=== PATIENT | female | born 1960 | race Caucasian/White ===

== ENCOUNTER 2016-09-30 10:41 | Outpatient (CLI) | payer OTHER, BC | END 2016-09-30 10:42 | disposition home or self-care (01) | DX: G47.33 Obstructive sleep apnea (adult) (pediatric) (principal) ==

== ENCOUNTER 2017-10-09 07:32 | Outpatient (CLI) | payer OTHER, BC ==
--- NOTE | 2017-10-09 11:42 | XRAY Report ---
THREE-VIEW BILATERAL FEET: 10/09/2017 CLINICAL INDICATION: Right greater than left pain. FINDINGS: AP, lateral and oblique views of the bilateral feet demonstrate mild bilateral hallux valgus, with mild osteoarthritis. There is no evidence of acute fracture or dislocation. No radiopaque foreign body is seen in the soft tissues. IMPRESSION: MILD OSTEOARTHRITIS, WITH MILD BILATERAL HALLUX VALGUS. TD: 10/09/2017 11:42 [facility]
== END 2017-10-09 07:33 | disposition home or self-care (01) ==
LOC: DI 07:32
PROVIDERS: ATTEND Registered Nurse
DX: M20.12 Hallux valgus (acquired), left foot (principal); M20.11 Hallux valgus (acquired), right foot; M19.072 Primary osteoarthritis, left ankle and foot; M19.071 Primary osteoarthritis, right ankle and foot; M21.619 Bunion of unspecified foot; M79.676 Pain in unspecified toe(s)

== ENCOUNTER 2018-10-20 14:45 | Outpatient (CLI) | payer OTHER, BC ==
--- NOTE | 2018-10-20 16:30 | Mammography Report ---
Reason: ENCOUNTER FOR SCREENING MAMMOGRAM FOR MALIGNANT NE Procedure Date: 10/20/2018 Accession Number: [id number] / [id number] Procedure: DIANN - Screening Mammo w/Woody CPT Code: FULL RESULT: EXAM: Screening Mammo w/Woody DATE: 10/20/2018 3:20 PM CLINICAL HISTORY: Routine screening. No reported personal or family history of breast cancer. TECHNIQUE: (B) - Bilateral CC and MLO views were obtained. COMPARISON: 06/07/2014 through 12/12/2010 PARENCHYMAL PATTERN: (D) - The breasts demonstrate heterogeneously dense fibroglandular parenchyma bilaterally. FINDINGS: Bilateral breasts: There are no suspicious masses, calcifications, or areas of distortion. IMPRESSION: Negative examination. BI-RADS category 1. RECOMMENDATION: (ANNUAL) - Recommend routine annual screening mammography. BI-RADS CATEGORY: (1) - Negative. STANDARD QUALIFYING STATEMENTS: 1. This examination was not reviewed with the aid of Computer-Aided Detection (CAD). 2. A negative or benign imaging report should not preclude biopsy if clinically suspicious findings are present. 3. Dense breasts may obscure an underlying neoplasm. 4. This examination was reviewed with the aid of 3D breast imaging (tomosynthesis).
== END 2018-10-20 14:46 | disposition home or self-care (01) ==
LOC: DI 14:45
PROVIDERS: ATTEND Registered Nurse
DX: Z12.31 Encounter for screening mammogram for malignant neoplasm of breast (principal)
CPT/HCPCS: 77063; 77067

== ENCOUNTER 2018-10-21 08:48 | Outpatient (CLI) | payer OTHER, BC | END 2018-10-21 08:49 | disposition home or self-care (01) | LOC: SC 08:48 | PROVIDERS: ATTEND Nurse Practitioner Family | DX: G47.33 Obstructive sleep apnea (adult) (pediatric) (principal) | CPT/HCPCS: 99212; 99214 ==

== ENCOUNTER 2019-06-07 10:11 | Outpatient (CLI) | payer OTHER, BC ==
[2019-06-07 11:05] VITALS: BP 106/70
--- NOTE | 2019-06-07 11:05 | SLEEP CARE CONSULTATION ---
Information from patient questionnaire entered by Kisha Cook. I have reviewed and concur with the information entered by Kisha Cook. This document represents the service I personally performed and the decisions made by me, Mira Miller, RN, MSN, [employer]. History of Present Illness Previous diagnosis: Mild, Obstructive Sleep Apnea-Hypopnea Syndrome AHI: 10.1 Reason for follow up: other (7 months, transfer of care) Equipment type: CPAP Equipment obtained from: [facility] (having difficulty getting supplies and unable to update CPAP ordered in October) Mask brand: Respironics Last cushion change: no new supplies for more than 6 months Prior sleep studies: Yes CPAP Compliance Data - Data Reviewed with Patient Average duration of nightly device use: 7h 7m Compliance rate %: 98 Current pressure setting (cmH2O): 5 Humidity settin Heated hose settin Average residual AHI: 2.2 Average large leak: 0s Subjective Patient concerns: reports: mask discomfort (from forehead piece. she did not get the cloth barriers shown), dry mouth, nose, throat (humidity increased with benefit). denies: aerophagia, air blowing in eyes, mask leak noise, condensation in mask/hose, nasal congestion, epistaxis Observed to snore while using device: No Current pressure setting perceived as: comfortable On therapy, patient: reports: sleeping better, awakening more refreshed, being more awake and alert during the day, more rested overall. denies: drowsiness while driving Initial [place] Sleepiness Scale score: 7 Current [place] Sleepiness Scale score: 7 Allergies and Home Medications Known drug allergies: No Home medication list reviewed: Yes Allergy and home medication list: Medication Name (generic/name brand) Strength & Dosage Etodolac 500mg tab one up to twice daily as needed Review of Systems Review of systems same as previous: Yes Physical Exam Blood Pressure: 106/70 Cuff size: long Heart Rate: 78 O2 Saturation: 98 Height: 5 ft 11 in Weight: 172 lb Body Mass Index: 24.0 BMI Classification: Healthy weight Impression and Plan 1. Obstructive Sleep Apnea-Hypopnea Syndrome, mild, with good treatment compliance and good apnea control. On CPAP therapy, the patient has better sleep quality and is more rested overall. As noted in history, the patient is having difficulty getting CPAP supplies or update of her CPAP thus is here today to transfer of care. She is also changing her insurance provider so waited to start process for beginning of the year. Thus since her CPAP is over 5 years old and of reasonable use and has been increasing noise of function as well has difficulty starting automatically, I will again write a prescription to update. I reviewed the differences in CPAPs and she would like to update to the [employer] ation. In addition, I will order a mask refitting for comfort. I showed her some samples and she would like to try the [employer] nasal mask. She is to contact the DME if mask fit no better for replacement if less than 30 days. Patient's apnea severity and rationale for treatment to reduce apnea, improve sleep quality and reduce cardiovascular and cerebrovascular events was reviewed. * Update CPAP and continue pressure at 5 cmH2O * mask refitting * Transfer of care * Notify me if snoring with mask or feeling that the pressure is too much or too little * Attempt to lose weight * Call this office if any problems using CPAP * Return for follow up in 1 month after receives device. Time Spent with Patient (minutes): 28 I spent 100% of this visit face to face with the patient with greater than 50% of this was spent time counseling the patient and coordination of care.
== END 2019-06-07 10:12 | disposition home or self-care (01) ==
LOC: SC 10:11
PROVIDERS: ATTEND Nurse Practitioner Family
DX: G47.33 Obstructive sleep apnea (adult) (pediatric) (principal)
CPT/HCPCS: 99212; 99214

== ENCOUNTER 2019-09-06 16:14 | Outpatient (CLI) | payer BC ==
--- NOTE | 2019-09-06 16:30 | SLEEP CARE CONSULTATION ---
Information from patient questionnaire entered by Elsie Reeder. I have reviewed and concur with the information entered by Elsie Reeder. This document represents the service I personally performed and the decisions made by me, Aileen Eisenberg MD, [facility]. History of Present Illness Previous diagnosis: Mild, Obstructive Sleep Apnea-Hypopnea Syndrome AHI: 10.1 (in 2012) Reason for follow up: first compliance after device update Equipment type: CPAP Equipment obtained from: [facility] additional information: To minimize the risk of COVID-19 exposure, we have the option to conduct your visit with me over the phone. I will be able to discuss your health and offer medical advice. If you agree, we will bill your insurance. Do you agree to this telephone service: YES. HPI: Ms. Beach was called today to follow up on nasal CPAP therapy. She was diagnosed to have mild obstructive sleep apnea-hypopnea syndrome and recently acquired a new machine. The patient wears with a nasal mask. She reports using the device nightly and all through the night. The compliance data show usage in 30 out of the past 30 nights, averaging 7 hours a night. The > 4 hour compliance rate for the past 30 days is 100%. She complained of no particular problem with the device such as soreness on the face, dry nose, epistaxis, nasal congestion or headache. She thinks that the pressure of 5 cmH2O many a little to strong because it causes some discomfort in her ears. On the CPAP therapy she notices improvement in her sleep quality, and that she wakes up feeling fresher in the morning and more awake/alert during the day. The average residual AHI is 2.3; and air leak, 0 L/min. CPAP Compliance Data - Data Reviewed with Patient Average duration of nightly device use: 6.95 Compliance rate %: 100 Current pressure setting (cmH2O): 5 Humidity settin Heated hose settin Average residual AHI: 2.3 Average large leak: 0 Subjective Initial [place] Sleepiness Scale score: 7 Allergies and Home Medications Drug allergies reviewed: Yes Home medication list reviewed: Yes Review of Systems Review of systems same as previous: Yes Physical Exam Height: 5 ft 11 in Impression and Plan IMPRESSION: 1. Obstructive Sleep Apnea-Hypopnea Syndrome, mild (AHI was 10.1), with the patient doing well on nasal CPAP therapy. She has excellent compliance and significant clinical improvement. The current pressure appears effective but slightly uncomfortable. Her mask fits well. Overall, she is very satisfied with treatment and plans to continue with it long-term. I will lower the pressure to 4 cmH2O. PLAN: 1. Lower CPAP to 4 cmH2O. 2. Try to lose weight 3. Try other masks and nasal pillows. 4. Return in one year for follow up or earlier if there is any problem with the treatment. I spent 100% of the 12 minute phone call with the patient with greater than 50% of this spent counseling the patient and coordination of care.
== END 2019-09-06 16:15 | disposition home or self-care (01) ==
LOC: SC 16:14
PROVIDERS: ATTEND Internal Medicine Pulmonary Disease
DX: G47.33 Obstructive sleep apnea (adult) (pediatric) (principal)

== ENCOUNTER 2019-11-09 11:25 | Outpatient (CLI) | payer BC ==
--- NOTE | 2019-11-09 12:43 | XRAY Report ---
Reason: PAIN IN RT WRIST Procedure Date: 11/09/2019 Accession Number: [id number] / [id number] Procedure: XR - Wrist 3 View RT CPT Code: Final Report FULL RESULT: PROCEDURE: Wrist 3 View RT INDICATIONS: PAIN IN RT WRIST TECHNIQUE: 3 views of the wrist were acquired. COMPARISON: None. FINDINGS: Bones: No fractures or dislocations. No suspicious bony lesions. Soft tissues: No suspicious soft tissue calcifications. No radiographic abnormalities underlying the skin BB marker identifying location of patient's pain. IMPRESSION: Right wrist without radiographic abnormalities. If there is persistent clinical concern for radiographically occult injury or soft tissue derangement, further evaluation with MRI can be considered. Reviewed by: Altaf Sarmiento MD on 11/09/2019 12:42 PM PDT Approved by: Altaf Sarmiento MD on 11/09/2019 12:42 PM PDT Station ID: [id number]
== END 2019-11-09 11:26 | disposition home or self-care (01) ==
LOC: DI 11:25
PROVIDERS: ATTEND Nurse Practitioner Family
DX: M25.531 Pain in right wrist (principal)

== ENCOUNTER 2019-12-10 10:00 | Emergency (ER) | payer BC ==
[2019-12-10 10:15] VITALS: BP 126/70
--- NOTE | 2019-12-10 11:02 | ED Physician Documentation ---
PD HPI BACK PAIN - Stated complaint Stated Complaint: BACK PX - Chief complaint Chief Complaint: Back Pain - History obtained from History obtained from: Patient - History of Present Illness Timing - onset: How many weeks ago (2) Timing - duration: Weeks (2) Timing - details: Gradual onset, Still present (improved from yesterday), Waxing and waning Location: Lower, Left Quality: Pain, Aching Associated symptoms: Numbness (just today). No: Fever, Weakness Worsened by: Movement Contributing factors: Twisting. No: Trauma, Cancer Similar symptoms before: No diagnosis Recently seen: Clinic (seen at [facility] walk in yesterday and Rx Robaxin. Told to recheck if develops numbness or weakness. Had some numbness down left lower leg/foot today, so here for eval. She says the pain has improved since yesterday.) Review of Systems Constitutional: denies: Fever, Chills : denies: Unable to Void, Incontinent Skin: denies: Rash, Lesions Musculoskeletal: reports: Back pain (left low back) Neurologic: reports: Numbness. denies: Focal weakness, Near syncope PD PAST MEDICAL HISTORY - Past Medical History Cardiovascular: None Respiratory: None Neuro: None - Past Surgical History Past Surgical History: Yes General: Colonoscopy HEENT: Other - Present Medications Home Medications: Ambulatory Orders Medication Instructions Recorded Confirmed Hydrocodone/Acetaminophen [[place] 1 each PO TID PRN #12 tablet 12/10/19 5-325 Tablet] dexAMETHasone [Decadron] 4 mg PO DAILY #7 tablet 12/10/19 - Allergies Allergies/Adverse Reactions: Allergies Allergy/AdvReac Type Severity Reaction Status Date / Time No Known Drug Allergies Allergy Verified 12/10/19 10:08 - Social History Does the pt smoke?: No Smoking Status: Never smoker Does the pt drink ETOH?: Yes Does the pt have substance abuse?: No - Immunizations Immunizations are current?: Yes - POLST Patient has POLST: No PD ED PE NORMAL - Vitals Vital signs reviewed: Yes - General General: Alert and oriented X 3, No acute distress, Well developed/nourished - Cardiac Cardiac: RRR, No murmur - Respiratory Respiratory: Clear bilaterally - Abdomen Abdomen: Soft, Non tender - Back Back: No CVA TTP, No spinal TTP (has some tenderness lower lumbar paraspinous area and muscles. No rash nor sores. ) - Derm Derm: Normal color, Warm and dry, No rash - Extremities Extremities: No tenderness to palpate, Normal ROM s pain, No edema, No calf tenderness / cord - Neuro Neuro: Alert and oriented X 3, No motor deficit, Normal speech, Other (decreased sensation some to touch in mid toes and dorsal foot, lateral lower leg. But able to distinguish sharp/dull. No motor weakness noted. ) Results - Vitals Vitals: Vital Signs - 24 hr 12/10/19 10:08 Temperature 36.6 C Heart Rate 65 Respiratory 16 Rate Blood Pressure 126/70 O2 Saturation 99 Oxygen O2 Source Room air PD MEDICAL DECISION MAKING - ED course Complexity details: considered differential (some nerve root numbness to left leg. Does not have red flag to suggest need for urgen imaging. ), d/w patient Departure - Departure Disposition: 01 Home, Self Care Clinical Impression: Low back pain Qualifiers: Chronicity: acute Back pain laterality: left Sciatica presence: with sciatica Sciatica laterality: sciatica of left side Qualified Code(s): M54.42 - Lumbago with sciatica, left side Condition: Stable Record reviewed to determine appropriate education?: Yes Instructions: ED Spasm Back No Trauma, ED Sciatica Follow-Up: Rosy Garduno ARNP [Primary Care Provider] - Prescriptions: dexAMETHasone [Decadron] 4 mg PO DAILY #7 tablet Hydrocodone/Acetaminophen [[place] 5-325 Tablet] 1 each PO TID PRN #12 tablet PRN Reason: Pain Comments: The numbness in her foot suggest some nerve irritation or inflammation. At this point it does not warrant urgent imaging such as CT or MRI. If your symptoms worsen or associated with weakness in the leg, then that may change the time urgency. Otherwise back pain even with some sciatic nerve irritation is typically approached with the anti-inflammatories and muscle relaxants and pain medicine along with physical modalities such as stretching heat chiropractic and massage. Follow-up with your primary care if not improved well over the next 3 to 5 days. Add Decadron steroid anti-inflammatory daily for the next 5 to 7 days. Continue your methocarbamol muscle relaxant for 3 to 5 days and then to as needed. Add Tylenol or ibuprofen for pain or hydrocodone if needed for worse pain. Discharge Date/Time: 12/10/19 11:45
[2019-12-10] MEDS ORDERED: DEXAMETHASONE 10 MG/ML VIAL PO STA (11:22)
[2019-12-10] MEDS ORDERED: ACETAMINOPHEN 325 MG TABLET PO STA (11:22)
[2019-12-10] MEDS ORDERED: CHERRY SYRUP 10 ML UDC PO ONE (11:22)
== END 2019-12-10 11:45 | disposition home or self-care (01) ==
LOC: ED 10:00
DX: M54.42 Lumbago with sciatica, left side (principal)
CPT/HCPCS: 99282; 99284; A9270

== ENCOUNTER 2020-05-15 15:25 | Outpatient (CLI) | payer OTHER, BC ==
--- NOTE | 2020-05-15 17:12 | Ultrasound Report ---
PROCEDURE: Head or Neck Soft Tissue INDICATIONS: THYROID DISORDER SCREENING TECHNIQUE: Real-time scanning was performed of the thyroid gland, with image documentation. COMPARISON: None FINDINGS: Right: Thyroid lobe measures 5.7 x 1.4 x 1.3 cm, and is homogeneous in echotexture. Left: Thyroid lobe measures 5.4 x 1.2 x 1.5 cm, and is homogenous in echotexture. Isthmus: 0.2 mm thick. Nodule number: One Location: Right lobe Size: 0.6 x 0.3 x 0.4 cm. Composition: Solid Echogenicity: Hypoechoic Shape: wider than tall. Margins: Irregular Echogenic foci: None Total points: 4 ACR TI-RADS category: 4 Nodule number: Two Location: Right lobe Size: 0.6 x 0.3 x 0.4 cm. Composition: Solid Echogenicity: Hypoechoic Shape: Wider than tall Margins: Irregular Echogenic foci: None Total points: 4 ACR TI-RADS category: 4 Nodule number: Three Location: Right lobe Size: 1.1 x 0.8 x 0.8 cm. Composition: Solid Echogenicity: Hypoechoic Shape: wider than tall. Margins: Smooth Echogenic foci: None Total points: 4 ACR TI-RADS category: 4 IMPRESSION: All images above are considered category 4 and recommend interval follow-up of lesion 3 at 1, 2, 3 and 5 years. Lesions 1 and 2 are considered below the threshold of annual follow-up. ACR TI-RADS definitions and recommendations: TI-RADS 1 (benign): 0 points. FNA not needed. TI-RADS 2 (not suspicious): 2 points. FNA not needed. TI-RADS 3 (mildly suspicious): 3 points. ? FNA if 2.5 cm or larger, follow up if 1.5 cm or larger (at 1, 3, and 5 years). TI-RADS 4 (moderately suspicious): 4-6 points. ? FNA if 1.5 cm or larger, follow up if 1 cm or larger (at 1, 2, 3, and 5 years). TI-RADS 5 (highly suspicious): 7 points or more. ? FNA if 1 cm or larger, follow up if 0.5 cm or larger (every year for 5 years). Reviewed by: Jennie Deng MD on 05/15/2020 5:10 PM PST Approved by: Jennie Deng MD on 05/15/2020 5:10 PM PST Station ID: [id number]
== END 2020-05-15 15:26 | disposition home or self-care (01) ==
LOC: DI 15:25
PROVIDERS: ATTEND Registered Nurse
DX: Z13.29 Encounter for screening for other suspected endocrine disorder (principal); E04.2 Nontoxic multinodular goiter

== ENCOUNTER 2020-08-31 11:27 | Outpatient (CLI) | payer OTHER, BC ==
--- NOTE | 2020-08-31 12:03 | SLEEP CARE CONSULTATION ---
Information from patient questionnaire entered by Elsie Reeder. I have reviewed and concur with the information entered by Elsie Reeder. This document represents the service I personally performed and the decisions made by , Maricel Winston ARNP. History of Present Illness Service Date and Time: 08/31/2020 1127 Previous diagnosis: Mild, Obstructive Sleep Apnea-Hypopnea Syndrome AHI: 10.1 (in 2011) Reason for follow up: annual (last seen 08/2019) Equipment type: CPAP Equipment obtained from: [employer] (getting supplies as needed) Mask style: Nasal pillows Backup mask available: Yes (old mask) Last cushion change: not sure Prior sleep studies: Yes Year and Where: 2011 - [facility] Type of Sleep Study: Polysomnography HPI additional information: OLEG ROWAN was diagnosed to have mild, AHI 10.1, obstructive sleep apnea- hypopnea syndrome and returned today for CPAP therapy annual follow-up. CPAP Compliance Data - Data Reviewed with Patient Average duration of nightly device use: 6 hr 53 min Compliance rate %: 97.8 (180 days) Current pressure setting (cmH2O): 4 Humidity settin Heated hose settin Average residual AHI: 3.4 Average large leak: 0 Subjective Patient concerns: reports: mask discomfort. denies: aerophagia, air blowing in eyes, mask leak noise, condensation in mask/hose, nasal congestion, dry mouth, nose, throat, epistaxis, other Observed to snore while using device: No Current pressure setting perceived as: comfortable On therapy, patient: reports: sleeping better, awakening more refreshed, being more awake and alert during the day, more rested overall. denies: drowsiness while driving Initial [place] Sleepiness Scale score: 7 (in 2011) Current [place] Sleepiness Scale score: 5 Allergies and Home Medications Drug allergies reviewed: Yes (NKDA) Home medication list reviewed: Yes (no new medications) Review of Systems Review of systems same as previous: No (Benign Paraxysmal Positional Vertigo 01/2020; Back spasms 12/2019 ) Physical Exam Heart Rate: 67 O2 Saturation: 98 Height: 6 ft Weight: 157 lb Body Mass Index: 21.2 BMI Classification: Healthy weight Impression and Plan 1. Obstructive Sleep Apnea-Hypopnea Syndrome, mild, with good treatment compliance and good apnea control. On CPAP therapy, the patient has better sleep quality and is more rested overall. She has not issues or concerns today. Patient's apnea severity and rationale for treatment to reduce apnea, improve sleep quality and reduce cardiovascular and cerebrovascular events was reviewed. * Continue auto CPAP pressure at 4 cmH2O * Notify me if snoring with mask or feeling that the pressure is too much or too little * Attempt to lose weight * Call this office if any problems using CPAP * Return for follow up in 1 year, or sooner if concerns arise Counseling Topics: Spare mask, Weight control Visit Type: In Office Time Spent with Patient (minutes): 12 Provider Statement: I spent 100% of the Face to Face Visit with the patient with greater than 50% spent counseling the patient and coordination of care.
== END 2020-08-31 11:28 | disposition home or self-care (01) ==
LOC: SC 11:27
PROVIDERS: ATTEND Nurse Practitioner Family
DX: G47.33 Obstructive sleep apnea (adult) (pediatric) (principal)
CPT/HCPCS: 99212

== ENCOUNTER 2021-05-24 15:19 | Outpatient (CLI) | payer OTHER, BC ==
--- NOTE | 2021-05-24 20:02 | Ultrasound Report ---
PROCEDURE: Head or Neck Soft Tissue INDICATIONS: THYROID NODULE TECHNIQUE: Real-time scanning was performed of the thyroid gland, with image documentation. COMPARISON: None FINDINGS: Right: Thyroid lobe measures 5.1 x 1.3 x 1.9 cm, and is homogeneous in echotexture. Left: Thyroid lobe measures 2 x 1.5 x 1.8 cm, and is homogenous in echotexture. Isthmus: 0.2 mm thick. Nodule number: One Location: Right lobe Size: 0.6 x 0.3 x 0.4 cm. Composition: Solid Echogenicity: Hypoechoic Shape: wider than tall. Margins: Irregular Echogenic foci: None Total points: 4 ACR TI-RADS category: 4 Nodule number: Two Location: Right lobe Size: 0.6 x 0.3 x 0.4 cm. Composition: Solid Echogenicity: Hypoechoic Shape: Wider than tall Margins: Irregular Echogenic foci: None Total points: 4 ACR TI-RADS category: 4 Nodule number: Three Location: Right lobe Size: 1.3 x 1.0 x 1.0 cm. Composition: Predominantly solid Echogenicity: Hypoechoic Shape: wider than tall. Margins: Smooth Echogenic foci: None Total points: 4 ACR TI-RADS category: 4 IMPRESSION: Stable thyroid nodules as above. Continued follow-up per best practice guidelines advise d ACR TI-RADS definitions and recommendations: TI-RADS 1 (benign): 0 points. FNA not needed. TI-RADS 2 (not suspicious): 2 points. FNA not needed. TI-RADS 3 (mildly suspicious): 3 points. "FNA if 2.5 cm or larger, follow up if 1.5 cm or larger (at 1, 3, and 5 years). TI-RADS 4 (moderately suspicious): 4-6 points. "FNA if 1.5 cm or larger, follow up if 1 cm or larger (at 1, 2, 3, and 5 years). TI-RADS 5 (highly suspicious): 7 points or more. "FNA if 1 cm or larger, follow up if 0.5 cm or larger (every year for 5 years). Reviewed by: Nils Bowden MD on 05/24/2021 7:00 PM [place] Approved by: Nils Bowden MD on 05/24/2021 7:00 PM AKST Station ID: [id number]
== END 2021-05-24 15:20 | disposition home or self-care (01) ==
LOC: DI 15:19
PROVIDERS: ATTEND Registered Nurse
DX: E04.2 Nontoxic multinodular goiter (principal)

== ENCOUNTER 2021-09-30 13:34 | Outpatient (CLI) | payer OTHER, BC ==
--- NOTE | 2021-09-30 14:18 | SLEEP CARE CONSULTATION ---
Information from patient questionnaire entered by Shen Enrique. I have reviewed and concur with the information entered by Shen Enrique. This document represents the service I personally performed and the decisions made by me, Aileen Eisenberg MD, [facility]. History of Present Illness Service Date and Time: 09/30/2021 1320 Previous diagnosis: Mild, Obstructive Sleep Apnea-Hypopnea Syndrome AHI: 10.1 (in 2011) Reason for follow up: annual (LAST SEEN 08/2020, [facility]) Equipment type: CPAP Equipment obtained from: [employer] (getting supplies as needed) Mask style: Nasal pillows Prior sleep studies: Yes Year and Where: 2011 - [facility] Type of Sleep Study: Polysomnography HPI additional information: Ms. Beach was called today to follow up on nasal CPAP therapy. She was diagnosed to have mild obstructive sleep apnea-hypopnea syndrome. The patient wears nasal pillows. She thinks [employer] is her durable medical supplier. She reports using the device nightly and all through the night. The compliance data show usage in 362 out of the past 365 nights, averaging 7.1 hours a night. The > 4 hour compliance rate for the past 365 days is 98.6%. She complained of soreness in her nostrils but no particular problem with the device such as soreness on the face, dry nose, epistaxis, nasal congestion or headache. She thinks that the pressure of 4 cmH2O is comfortable. On the CPAP therapy she notices improvement in her sleep quality, and that she wakes up feeling fresher in the morning and more awake/alert during the day. The average residual AHI is 5.4 (mainly due to the very high residual AHI in Mar-Apr last year when she had her knee surgery); and air leak, 0 L/min. Sleep Study - Results Type of Sleep Study: Polysomnography Prior sleep studies: Yes Year and Where: 2011 - [facility] Subjective Initial [place] Sleepiness Scale score: 7 (in 2012) Allergies and Home Medications Drug allergies reviewed: Yes Home medication list reviewed: Yes Allergy and home medication list: Allergies No Known Drug Allergies Allergy (Verified 12/10/19 10:08) Physical Exam Vital signs obtained and entered by: ELEUTERIO FRANCES Height: 6 ft Impression and Plan IMPRESSION: 1. Obstructive Sleep Apnea-Hypopnea Syndrome, mild (AHI was 10.1), with the patient doing well on nasal CPAP therapy. She has excellent compliance and significant clinical improvement. The current pressure appears effective and comfortable. Her mask fits well. Overall, she is very satisfied with treatment and plans to continue with it long-term. I will leave the pressure at 4 cmH2O. PLAN: 1. Leave CPAP at 4 cmH2O. 2. Try to lose weight 3. Try ResMed N30i mask and Respironics DreamWear nasal cushion mask. 4. Return in one year for follow up or earlier if there is any problem with the treatment. Follow up with Sleep Care in: 1 year Visit Type: Telehealth Video (PHONE# [phone]) Video Type: Doximity Patient Location: Home Location of Provider: Home Patient agrees and consents to this telehealth visit type: Yes Patient agrees to have their insurance billed: Yes Provider Statement: I spent 100% of the Telehealth Video Call with the patient with greater than 50% spent counseling the patient and coordination of care.
== END 2021-09-30 13:35 | disposition home or self-care (01) ==
LOC: SC 13:34
PROVIDERS: ATTEND Internal Medicine Pulmonary Disease
DX: G47.33 Obstructive sleep apnea (adult) (pediatric) (principal)

== ENCOUNTER 2021-12-24 13:58 | Outpatient (CLI) | payer OTHER, BC ==
--- NOTE | 2021-12-25 16:15 | Mammography Report ---
BILATERAL DIGITAL SCREENING MAMMOGRAM 3D/2D: 12/24/2021 CLINICAL: Routine screening. Comparison is made to exams dated: 10/20/2018 mammogram, 10/20/2018 mammogram, 06/07/2014 mammogram, 1 mammogram, and 02/22/2013 mammogram - [facility]. The tissue of both monica sts is heterogeneously dense. This may lower the sensitivity of mammography. No significant masses, calcifications, or other findings are seen in either breast. There has been no significant interval change. IMPRESSION: NEGATIVE There is no mammographic evidence of malignancy. A 1 year screening mammogram is recommended. Based on the Tyrer Cuzick model (a risk assessment model) the patients lifetime risk is 13.0% and he r 10 year risk is 5.5%. According to the ACR, ACS, and NCCN guidelines, an annual breast MRI exam declan ng with mammogram is recommended if the patients lifetime risk is 20% or greater. This exam was interpreted at Station ID: [id number]. NOTE: For mammograms, a report in lay terms will be sent to the patient. Approximately 15% of breast malignancies will not be visualized mammographically. In the management of a palpable breast mass, a negative mammogram must not discourage biopsy of a clinically suspicious lesion. Electronically Signed By: Leena howard/jozef:12/24/2021 17:19:13 ACR BI-RADS Category 1: Negative 3341F PARENCHYMAL PATTERN: (D) - The breast(s) demonstrate(s) heterogeneously dense fibroglandular avery morillo. BI-RADS CATEGORY: (1) - 1 RECOMMENDATION: (ANNUAL) - Recommend routine annual screening mammography. [id number] 1 year screening LATERALITY: (B)
== END 2021-12-24 13:59 | disposition home or self-care (01) ==
LOC: DI 13:58
DX: Z12.31 Encounter for screening mammogram for malignant neoplasm of breast (principal)

== ENCOUNTER 2022-08-23 07:00 | Outpatient (CLI) | payer OTHER, BC ==
--- NOTE | 2022-08-23 19:31 | XRAY Report ---
PROCEDURE: Tib/Fib LT INDICATIONS: LEFT LOWER LEG PAIN TECHNIQUE: 2 views of the tibia and fibula were acquired. COMPARISON: None FINDINGS: Bones: No fractures or dislocations. No suspicious bony lesions. No periosteal reaction or cortica l thinning. Soft tissues: No suspicious soft tissue calcifications or masses. IMPRESSION: No stress fracture identified. Reviewed by: Bong Ellis MD on 08/23/2022 6:29 PM [facility] Approved by: Bong Ellis MD on 08/23/2022 6:29 PM [facility]IRA Station ID: [id number]
== END 2022-08-23 07:01 | disposition home or self-care (01) ==
LOC: DI.S 07:00
PROVIDERS: ATTEND Physician Assistant
DX: M79.605 Pain in left leg (principal)

== ENCOUNTER 2022-09-08 12:53 | Outpatient (CLI) | payer OTHER, BC ==
[2022-09-08 13:14] VITALS: BP 118/70
--- NOTE | 2022-09-08 13:14 | SLEEP CARE CONSULTATION ---
Information from patient questionnaire entered by Bharath Ferris. I have reviewed and concur with the information entered by Bharath Ferris. This document represents the service I personally performed and the decisions made by me, Aileen Eisenberg MD, [facility]. History of Present Illness Service Date and Time: 09/08/2022 1253 Previous diagnosis: Mild, Obstructive Sleep Apnea-Hypopnea Syndrome AHI: 10.1 (in 2011) Reason for follow up: annual (LAST SEEN 09/2021) Equipment type: CPAP (JUSTIN) Equipment obtained from: [employer] (getting supplies as needed) Mask style: Nasal pillows Prior sleep studies: Yes Year and Where: 2011 - [facility] Type of Sleep Study: Polysomnography HPI additional information: Ms. Beach was called today to follow up on nasal CPAP therapy. She was diagnosed to have mild obstructive sleep apnea-hypopnea syndrome. The patient wears nasal pillows. She thinks [employer] is her durable medical supplier. She reports using the device nightly and all through the night. The compliance data show usage in 177 out of the past 180 nights, averaging 6.6 hours a night. The > 4 hour compliance rate for the past 180 days is 97.8%. She complained of nasal congestion in her right nostril but no particular problem with the device such as soreness on the face, dry nose, epistaxis, or headache. She thinks that the pressure of 4 cmH2O is comfortable. On the CPAP therapy she notices improvement in her sleep quality, and that she wakes up feeling fresher in the morning and more awake/alert during the day. The average residual AHI is 4.3; and air leak, 0.1 L/min. Sleep Study - Results Type of Sleep Study: Polysomnography Prior sleep studies: Yes Year and Where: 2011 - [facility] CPAP Compliance Data - Data Reviewed with Patient Average duration of nightly device use: 6HRS 33INS 16SECS Compliance rate %: 98.3 (03/09/22-09/04/22) Current pressure setting (cmH2O): 4 Average residual AHI: 4.3 Subjective Initial [place] Sleepiness Scale score: 7 (in 2011) Current [place] Sleepiness Scale score: 9 (09/08/2022) Allergies and Home Medications Drug allergies reviewed: Yes Home medication list reviewed: Yes Allergy and home medication list: Allergies No Known Drug Allergies Allergy (Verified 12/10/19 10:08) Review of Systems Review of systems same as previous: Yes Physical Exam Vital signs obtained and entered by: BHARATH Bella MA Blood Pressure: 118/70 (LEFT ARM) Cuff size: regular Heart Rate: 69 O2 Saturation: 98 Height: 6 ft Weight: 176 lb 12.8 oz Body Mass Index: 24.0 BMI Classification: Normal Impression and Plan IMPRESSION: 1. Obstructive Sleep Apnea-Hypopnea Syndrome, mild (AHI was 10.1), with the patient doing well on nasal CPAP therapy. She has excellent compliance and significant clinical improvement. The current pressure appears effective and comfortable. Her nasal pillows fit well. Overall, she is very satisfied with treatment and plans to continue with it long-term. I will leave the pressure at 4 cmH2O. Her right nostril is smaller than left. PLAN: 1. Leave CPAP at 4 cmH2O. 2. Try to lose weight 3. Try ResMed N30i mask and Respironics DreamWear nasal cushion mask. 4. Return in one year for follow up or earlier if there is any problem with the treatment. Follow up with Sleep Care in: 1 year Visit Type: In Office Time Spent with Patient (minutes): 15 Provider Statement: I spent 100% of the Face to Face Visit with the patient with greater than 50% spent counseling the patient and coordination of care.
== END 2022-09-08 12:54 | disposition home or self-care (01) ==
LOC: SC 12:53
PROVIDERS: ATTEND Internal Medicine Pulmonary Disease
DX: G47.33 Obstructive sleep apnea (adult) (pediatric) (principal)
CPT/HCPCS: 99212

== ENCOUNTER 2022-10-24 07:49 | Outpatient (CLI) | payer OTHER, BC ==
[2022-10-24 08:08] LABS: BASOPHILS # (AUTO) 0.1 10^3/uL (0.0-0.1); BASOPHILS % (AUTO) 1.2 %; EOSINOPHILS # (AUTO) 0.1 10^3/uL (0.0-0.7); EOSINOPHILS % (AUTO) 2.5 %; HCT - HEMATOCRIT 43.2 % (37.0-47.0); HGB - HEMOGLOBIN 14.1 g/dL (12.0-16.0); LYMPHOCYTES # (AUTO) 1.7 10^3/uL (1.5-3.5); LYMPHOCYTES % (AUTO) 29.5 %; MEAN CORPUSCULAR HEMOGLOBIN 29.6 pg (27.0-31.0); MEAN CORPUSCULAR HGB CONC 32.6 g/dL (32.0-36.0); MEAN CORPUSCULAR VOLUME 90.8 fL (81.0-99.0); MEAN PLATELET VOLUME 10.1 fL (7.9-10.8); MONOCYTES # (AUTO) 0.5 10^3/uL (0.0-1.0); MONOCYTES % (AUTO) 8.8 %; NEUTROPHILS # (AUTO) 3.3 10^3/uL (1.5-6.6); NEUTROPHILS % (AUTO) 57.5 %; PLT - PLATELET COUNT 276 10^3/uL (130-450); RED BLOOD COUNT 4.76 10^6/uL (4.20-5.40); WHITE BLOOD COUNT 5.7 x10^3/uL (4.8-10.8)
[2022-10-24 08:18] LABS: ALBUMIN 4.2 g/dL (3.2-5.5); ALBUMIN/GLOBULIN RATIO 1.6 (1.0-2.2); ALKALINE PHOSPHATASE 48 IU/L (42-121); ALT ALANINE AMINOTRANSFERASE 16 IU/L (10-60); AST ASPARTATE AMINOTRANSFERASE 17 IU/L (10-42); BILIRUBIN,TOTAL 0.9 mg/dL (0.2-1.0); BUN - BLOOD UREA NITROGEN 17 mg/dL (6-20); CALCIUM 9.2 mg/dL (8.5-10.3); CARBON DIOXIDE - CO2 28 mmol/L (21-32); CHLORIDE 103 mmol/L (101-111); CHOL/HDL RATIO 5.7 (<4.4); CHOLESTEROL 267 mg/dL; CREATININE 0.7 mg/dL (0.4-1.0); GFR - MDRD 85 (>89); GLUCOSE 101 mg/dL (70-100); HDL CHOLESTEROL 47 mg/dL; LDL CHOLESTEROL,CALCULATED 195 mg/dL; LDL/HDL RATIO 4.1 (<4.4); POTASSIUM 4.3 mmol/L (3.5-5.0); SODIUM 141 mmol/L (135-145); TOTAL PROTEIN 6.9 g/dL (6.7-8.2); TRIGLYCERIDES 125 mg/dL; VLDL CHOLESTEROL 25 mg/dL
[2022-10-24 08:30] LABS: THYROID STIMULATING HORMONE 1.27 uIU/mL (0.34-5.60)
== END 2022-10-24 07:50 | disposition home or self-care (01) ==
LOC: LAB 07:49
PROVIDERS: ATTEND Nurse Practitioner Family
DX: Z00.00 Encounter for general adult medical examination without abnormal findings (principal)
CPT/HCPCS: 36415; 80053; 80061; 83721; 84443; 85025

== ENCOUNTER 2022-11-12 07:09 | Outpatient (CLI) | payer OTHER, BC ==
--- NOTE | 2022-11-12 10:37 | Ultrasound Report ---
PROCEDURE: Head or Neck Soft Tissue INDICATIONS: THYROID NODULE TECHNIQUE: Real-time scanning was performed of the thyroid gland, with image documentation. COMPARISON: Thyroid ultrasound 05/24/2021 FINDINGS: Right: Thyroid lobe measures 4.3 x 1.8 x 1.6 cm, and is homogeneous in echotexture. Left: Thyroid lobe measures 4.9 x 1.6 x 1.5 cm, and is homogenous in echotexture. Isthmus: 0.2 cm thick. Nodule number: One Location: Right superior Size: 0.7 cm (previously 0.6 cm) Composition: Solid (2 points). Echogenicity: Hypoechoic (2 points). Shape: wider than tall. Margins: Ill-defined (0 points). Echogenic foci: None (0 points). Total points: 4 ACR TI-RADS category: Moderately suspicious (4-6 points). Nodule number: Two Location: Right mid Size: 0.4 cm (previously 0.6 cm) Composition: Solid (2 points). Echogenicity: Hypoechoic (2 points). Shape: wider than tall. Margins: Ill-defined (0 points). Echogenic foci: None (0 points). Total points: 4 ACR TI-RADS category: Moderately suspicious (4-6 points). Nodule number: Three Location: Right inferior Size: 1.2 cm (previously 1.3 cm) Composition: Solid (2 points). Echogenicity: Hypoechoic (2 points). Shape: wider than tall. Margins: Smooth (0 points). Echogenic foci: None (0 points). Total points: 4 ACR TI-RADS category: Moderately suspicious (4-6 points). IMPRESSION: Stable right-sided thyroid nodules. Recommend continued follow-up based on guidelines pr ovided below. ACR TI-RADS definitions and recommendations: TI-RADS 1 (benign): 0 points. FNA not needed. TI-RADS 2 (not suspicious): 2 points. FNA not needed. TI-RADS 3 (mildly suspicious): 3 points. "FNA if 2.5 cm or larger, follow up if 1.5 cm or larger (at 1, 3, and 5 years). TI-RADS 4 (moderately suspicious): 4-6 points. "FNA if 1.5 cm or larger, follow up if 1 cm or larger (at 1, 2, 3, and 5 years). TI-RADS 5 (highly suspicious): 7 points or more. "FNA if 1 cm or larger, follow up if 0.5 cm or larger (every year for 5 years). Reviewed by: Miguel Denson MD on 11/12/2022 10:35 AM PDT Approved by: Miguel Denson MD on 11/12/2022 10:35 AM PDT Station ID: [id number]
== END 2022-11-12 07:10 | disposition home or self-care (01) ==
LOC: DI 07:09
PROVIDERS: ATTEND Nurse Practitioner Family
DX: Z86.39 Personal history of other endocrine, nutritional and metabolic disease (principal); R59.0 Localized enlarged lymph nodes; E04.2 Nontoxic multinodular goiter

== ENCOUNTER 2023-10-26 15:11 | Outpatient (CLI) | payer BC ==
--- NOTE | 2023-10-27 08:45 | SLEEP CARE CONSULTATION ---
Information from patient questionnaire entered by Bharath Ferris. I have reviewed and concur with the information entered by Bharath Ferris. This document represents the service I personally performed and the decisions made by me, Aileen Eisenberg MD, [facility]. History of Present Illness Service Date and Time: 10/26/2023 1511 Previous diagnosis: Mild, Obstructive Sleep Apnea-Hypopnea Syndrome AHI: 10.1 (in 2011) Reason for follow up: annual (LAST SEEN 09/2022) Equipment type: CPAP (JUSTIN) Equipment obtained from: [employer] (getting supplies as needed) Mask style: Nasal pillows Prior sleep studies: Yes Year and Where: 2011 - [facility] Type of Sleep Study: Polysomnography HPI additional information: Ms. Beach returns today to follow up on nasal CPAP therapy. She was diagnosed with mild obstructive sleep apnea-hypopnea syndrome. The patient wears nasal pillows. She thinks [employer] is her durable medical supplier. She reports using the device nightly and all through the night. The compliance data show usage in 345 out of the past 346 nights, averaging 6.7 hours a night. The > 4 hour compliance rate for the past 346 days is 98%. She complained of nasal congestion in her right nostril but no particular problem with the device such as soreness on the face, dry nose, epistaxis, or headache. She thinks that the pressure of 4 cmH2O is comfortable. On the CPAP therapy she notices improvement in her sleep quality, and that she wakes up feeling fresher in the morning and more awake/alert during the day. The average residual AHI is 1.0; and air leak, 0.2 L/min. Sleep Study - Results Type of Sleep Study: Polysomnography Prior sleep studies: Yes Year and Where: 2011 - [facility] CPAP Compliance Data - Data Reviewed with Patient Average duration of nightly device use: 6HRS 58MINS 42SECS Compliance rate %: 99.5 (10/21/22-10/20/23) Current pressure setting (cmH2O): 4 Average residual AHI: 3.9 Subjective Initial [place] Sleepiness Scale score: 7 (in 2011) Current [place] Sleepiness Scale score: 7 (10/26/23) Allergies and Home Medications Drug allergies reviewed: Yes Home medication list reviewed: Yes Allergy and home medication list: Allergies No Known Drug Allergies Allergy (Verified 09/08/22 12:59) Review of Systems Review of systems same as previous: No (TOOTH IMPLANT INITIATED ) Physical Exam Vital signs obtained and entered by: BHARATH Bella MA Blood Pressure: 111/73 (LEFT ARM) Cuff size: regular Heart Rate: 69 O2 Saturation: 98 Height: 6 ft Weight: 166 lb 3.2 oz Body Mass Index: 22.5 BMI Classification: Normal Impression and Plan IMPRESSION: 1. Obstructive Sleep Apnea-Hypopnea Syndrome, mild (AHI was 10.1 in 2012), with the patient doing well on nasal CPAP therapy. She has excellent compliance and significant clinical improvement. However, she wonders if she has to keep using the CPAP. I told her that she might be able to get by with positioning therapy. I advised her to sew tennis balls onto the back of her pa[employer] top to prevent supine sleep. The patient will try this, and if it works, she would like to have another sleep study to confirm that she does not need to use her CPAP. PLAN: 1. Leave CPAP at 4 cmH2O. 2. Avoid sleeping supine if not using her CPAP. 4. Repeat the in-laboratory polysomnography to assess the effectiveness of the positioning therapy. 4. Otherwise, return for follow up in one year. Follow up with Sleep Care in: 1 year Visit Type: In Office Time Spent with Patient (minutes): 15 Provider Statement: I spent 100% of the Face to Face Visit with the patient with greater than 50% spent counseling the patient and coordination of care.
[2023-10-27 08:51] VITALS: BP 111/73; O2SAT 98
== END 2023-10-26 15:12 | disposition home or self-care (01) ==
LOC: SC 15:11
PROVIDERS: ATTEND Internal Medicine Pulmonary Disease
DX: G47.33 Obstructive sleep apnea (adult) (pediatric) (principal)
CPT/HCPCS: 99212